=== PATIENT | female | born 1960 | race Caucasian/White ===

== ENCOUNTER 2021-01-02 19:19 | Emergency (ER) | payer OTHER ==
[~2021-01-02] VITALS: Ht 165.1 cm; Wt 82.6 kg
[~2021-01-02 19:19] MED LIST: ESTRATEST; LEVOTHROID PO; LISINOPRIL PO; SYMBICORT IH
[2021-01-02] MEDS ORDERED: LIPITOR10 MG PO (19:42)
[2021-01-02] MEDS ORDERED: CRUTCHES MISCELL (20:55)
[2021-01-02 21:23] VITALS: BP 128/65
--- NOTE | 2021-01-04 14:15 | EKG ---
[place] [address] ELECTROCARDIOGRAM REPORT Name: TESSA TERESA Room: [facility]#: [id number] Admission: 01/02/21 Attend Phys: Discharge: 01/02/21 Date of : 58 Date of Service: 01/02/211941 Report #: [id number] THIS REPORT FOR: //name// [facility] ED Test Date: 2021-01-02 Test Time: 19:42:33 Pat Name: TESSA TERESA Department: Room: Gender: F Contact [employer]: [place] : 1960 Requested By: Efe Arce Order Number: [id number] MD: Kody Blackwell Measurements Intervals [place] Rate: 87 P: 63 AL: 151 QRS: 5 QRSD: 92 T: 60 QT: 354 QTc: 426 Interpretive Statements Sinus rhythm Abnormal R-wave progression, early transition Compared to ECG 06/13/2009 08:58:17 No significant changes Electronically Signed On 01-04-2021 14:15:34 CDT by Kody Blackwell [email or web address] <ELECTRONICALLY SIGNED> By: Kody Blackwell MD, FACC 01/04/21 1415 41 41 Kody Blackwell MD, [facility] /EPI
== END 2021-01-02 21:25 | disposition home or self-care (01) ==
LOC: M.ERS 19:19
DX: S92.512A Displaced fracture of proximal phalanx of left lesser toe(s), initial encounter for closed fracture (principal); S93.402A Sprain of unspecified ligament of left ankle, initial encounter; I10 Essential (primary) hypertension; J44.9 Chronic obstructive pulmonary disease, unspecified; E03.9 Hypothyroidism, unspecified; E78.00 Pure hypercholesterolemia, unspecified; Z90.49 Acquired absence of other specified parts of digestive tract; Z90.710 Acquired absence of both cervix and uterus; Z79.899 Other long term (current) drug therapy; W19.XXXA Unspecified fall, initial encounter; Y93.89 Activity, other specified; Y92.89 Other specified places as the place of occurrence of the external cause; Y99.8 Other external cause status